=== PATIENT | female | born 1995 | race Caucasian/White ===

== ENCOUNTER 2020-03-29 21:08 | Emergency (ER) | payer MEDICAID ==
[~2020-03-29] VITALS: Ht 160 cm; Wt 53.0 kg
[2020-03-29 21:10] VITALS: BP 120/90
[2020-03-29 23:31] LABS: CLARITY URINE CLOUDY (CLEAR); COLOR URINE YELLOW (YELLOW); KETONES URINE NEGATIVE (NEGATIVE); LEUKOCYTE ESTERASE URINE 2+ (NEGATIVE); NITRITE URINE POSITIVE (NEGATIVE); OCCULT BLOOD URINE 2+ (NEGATIVE); PROTEIN URINE NEGATIVE (NEGATIVE); SPECIFIC GRAVITY URINE 1.016 (1.005-1.030)
[2020-03-29] MEDS ORDERED: CEPHALEXIN 250MG CAPSULE PO ONE (23:45)
== END 2020-03-30 00:15 | disposition home or self-care (01) ==
LOC: ER 21:08
DX: N39.0 Urinary tract infection, site not specified (principal)
CPT/HCPCS: 81003; 81025; 99283